=== PATIENT | female | born 1980 | race Caucasian/White ===

== ENCOUNTER 2020-01-01 06:30 | Outpatient (CLI) | payer OTHER, SELFPAY ==
--- NOTE | 2020-01-06 21:48 | SLEEP_ITS ---
Home sleep test. DATE OF STUDY: 01/01/2020 ORDERING PHYSICIAN: April Roth M.D. REASON FOR THE STUDY: Fatigue. HISTORY: This patient is a 39-year-old female, who is 5 feet 4 inches tall, weighing 205 pounds with a body mass index of 35.1. She has complaints of fatigue, feeling tired, and sluggish daily. She has not been able to lose weight even with dieting after her 2nd . She has a mass in her neck that developed after her in 2017 near her thyroid. All testing has been negative. She has been exercising recently. She feels sluggish and tired even after sleeping 8 hours. It is very severe. Her father has sleep apnea and her mother snores. She has 2 children, ages 6 and 3. She occasionally awakens from sleep feeling short of breath if she sleeps on her back. She frequently awakens at night with heartburn or belching. She occasionally snores and only rarely it is loud enough that others complain about it. She constantly has trouble sleeping with the cold. She occasionally gasps for breath at night when she is sleeping on her back. Other people do not complain about her sleep. She occasionally sweats excessively at night. She does not fall asleep during the day, does not fall asleep involuntarily or while driving. She does not have loss of muscle tone with strong emotion. She occasionally has daytime difficulty due to excessive sleepiness. She does not feel paralyzed on waking or falling asleep and does not have vivid dreamlike scenes upon awakening or falling asleep. She is never afraid to go to sleep. She has nightmares when she gets overheated at night. She rarely remembers her dreams. She constantly has racing thoughts. She rarely feels sad or depressed and rarely has anxiety. She occasionally has muscular tension. She does not notice parts of her body jerking. She does not kick at night. She frequently has crawly and achy feelings in her legs and frequently has leg pain at night. She does not have morning jaw pain. She does not grind her teeth during the sleep. She rarely is bothered by pain during the day. She is not awakened by pain at night. She frequently wakes up feeling stiff in the morning with sore achy muscles. She has stomach problems, fatigue, bowel disturbances, headaches, concentration difficulties, and takes antacids regularly. She goes to bed at 10 p.m., falling asleep within minutes, waking 6 times at night, tossing, turning, but does not get out of the bed. She will be awake for a few moments to a few minutes. She will roll-over and fall asleep again. She wakes for the day at 7:30 a.m. She does not take naps. A short nap is not refreshing. She is drowsy in the morning for 3 hours or longer. MEDICAL COMORBIDITIES: Seasonal allergies, heartburn, IBS symptoms with diarrhea and constipation. MEDICATIONS: 1. Zyrtec 1 daily during allergy season. 2. Tums as needed for heartburn symptoms. 3. control implant. HABITS: Never smoked tobacco. Caffeine, 1 to 2 cups of coffee a day. No alcohol or recreational drugs. DESCRIPTION OF THE STUDY: On the [place] Sleepiness Scale, the score is 2. This was conducted as an unattended type 3 portable home sleep test using the 4 channel monitoring with snoring channel, oxygen saturation channel, respiratory effort channel, and heart rate channel. The duration was 8 hours 26 minutes. The apnea-hypopnea index is 1.9. Oxygen desaturation index is 1.4. Lowest saturation 90%. She had 3 apneas. Two apneas were obstructive, 1 apnea was central and there were 13 hypopneas. She had 31 snoring events. She had 13 desaturations and spent no time below 88%. Heart rate ranged from 56 to 95. IMPRESSION: This home sleep test does not show significant evidence of
== END 2020-01-01 06:31 | disposition home or self-care (01) ==
LOC: ANHCSM 06:30
PROVIDERS: PCP Family Medicine Adolescent Medicine; Visit Provider Internal Medicine Endocrinology, Diabetes & Metabolism
DX: R53.83 Other fatigue (principal)
CPT/HCPCS: 95806

== ENCOUNTER → 2020-08-19 10:49 | Outpatient (CLI) | payer OTHER, SELFPAY ==
--- NOTE | ~2020-08-19 | US_ITS ---
EXAMINATION: US thyroid DATE: 08/19/2020 11:13 INDICATION: Nontoxic single thyroid nodule TECHNIQUE: Multiple ultrasound images of the thyroid were obtained. COMPARISON: 05/28/2019 FINDINGS: The right thyroid lobe measures 6.1 x 2.3 x 2.5 cm. The left thyroid lobe measures 5.9 x 1.7 x 1.7 c m. Thyroid isthmus measures 4 mm. Multiple bilateral thyroid nodules. Unchanged 2.3 cm wider than enrique l solid isoechoic nodule with smooth margins and without echogenic foci (TI-RADS 3, mildly suspicious , FNA if >=2.5 cm, annual followup is >=1.5 cm) in the right thyroid lobe. At the superior right thy roid lobe there is a 1.1 very hypoechoic solid nodule with ill-defined margins (TI-RADS 4, moderately suspicious , FNA if >=1.5 cm, annual followup is >=1 cm). Second 1.1 cm predominantly solid hypoecho ic 2 very hypoechoic nodule with lobular margins at the superior right thyroid (TI-RADS 5, highly tomasz picious , FNA if >=1.0 cm, annual followup is >0.5 cm). There is normal echotexture, echogenicity and vascular flow throughout the thyroid gland. No significant interval change in a 1.8 cm predominantly anechoic cystic TI RADS 1 nodule at the inferior right thyroid. 1.0 cm solid isoechoic nodule with h ypoechoic halo with ill-defined margins TI RADS 4 at the inferior left thyroid. There are a few addit ional subcentimeter nodules in the left and right thyroid lobes. There is otherwise normal echogenici ty throughout the surrounding thyroid. IMPRESSION: 1. Multinodular goiter. A 1.1 cm TI RADS 5 nodule at the superior right thyroid which meets criteria for ultrasound-guided biopsy which would be recommended. Reviewed, dictated and finalized at location B. [facility] [employer]
== END ==
PROVIDERS: Visit Provider Internal Medicine Endocrinology, Diabetes & Metabolism
DX: E04.2 Nontoxic multinodular goiter (principal)
CPT/HCPCS: 76536

== ENCOUNTER 2020-10-03 10:16 | Outpatient (CLI) | payer OTHER, SELFPAY ==
--- NOTE | ~2020-10-03 | US_ITS ---
EXAMINATION: US thyroid DATE: 10/03/2020 11:06 INDICATION: Right thyroid nodule TECHNIQUE: Multiple ultrasound images of the thyroid were obtained. COMPARISON: None. FINDINGS: Personal Consultant imaging of the right thyroid lobe was obtained prior to planned biopsy of a previous noted 11 m m TI RADS 5 nodule. On real-time imaging the nodule previously appearing as a lobular hypoechoic nodu le appeared rather to be comprised of independent subcentimeter predominantly cystic TI RADS 1 nodule s. Given the reassessment and downgrading of the lesions the planned biopsy was canceled. IMPRESSION: 1. Downgrading of the previously noted nodule of concern. On real-time imaging lesion as previously i remedios appear to be comprised of a separate smaller TI RADS 1 nodules not meeting criteria for biopsy or follow-up and the planned biopsy was canceled. Reviewed, dictated and finalized at location A. IMPRESSION: 1. Downgrading of the previously noted nodule of concern. On real-time imaging lesion as previously imaged appear to be comprised of a separate smaller TI RAD S 1 nodules not meeting criteria for biopsy or follow-up and the planned biopsy was canceled.
== END 2020-10-03 10:17 | disposition home or self-care (01) ==
PROVIDERS: PCP Family Medicine Adolescent Medicine; Visit Provider Internal Medicine Endocrinology, Diabetes & Metabolism
DX: E04.1 Nontoxic single thyroid nodule (principal)
CPT/HCPCS: 76536

== ENCOUNTER 2022-06-18 09:35 | Emergency (ER) | payer OTHER, SELFPAY ==
[2022-06-18 09:41] VITALS: BP 134/84; PULSE 79; RESP 16; TEMP 36.9; O2SAT 98
--- NOTE | 2022-06-18 10:14 | ED.URI ---
HPI - URI/Sore Throat General Chief Complaint: Upper Respiratory Infection Stated Complaint: cough, chest pain, wheezing Time Seen by Provider: 06/18/22 10:14 Source: patient Mode of arrival: ambulatory Limitations: no limitations History of Present Illness HPI Narrative: 42-year-old female presenting for complaint of cough worsening over the last 2 days. States cough is minimally productive. Also states she felt a mid upper chest tightness and wheezing this morning when she woke. Denies sob, dizziness, fatigue, body aches, n/v/d/f/c. Related Data Home Medications Medication Instructions Recorded Confirmed etonogestrel 68 mg subdermal 1 implant subdermal ONCE 08/11/20 06/18/22 implant (Nexplanon) Allergies Allergy/AdvReac Type Severity Reaction Status Date / Time No Known Allergies Allergy Verified 06/18/22 09:48 Review of Systems Review of Systems: CONSTITUTIONAL: Denies body aches, fever, chills, or sweats. EYES: Denies visual changes, redness, or discharge. ENT: Denies rhinorrhea, congestion, sore throat, or otalgia. CARDIOVASCULAR: Denies chest pain, palpitations, or edema. RESPIRATORY: Reports cough, wheezing. GASTROINTESTINAL: Denies abdominal pain, nausea, vomiting, or diarrhea. GENITOURINARY: Denies dysuria or hematuria. SKIN: Denies rash, itching, or wounds. MUSCULOSKELETAL: Denies back pain, joint pain, or myalgia. NEUROLOGIC: Denies headache, numbness, tingling, or weakness. All systems reviewed & are unremarkable except as noted in HPI and below PMFSH Past Medical History Medical History Migraines Obesity Surgical History Surgical History History of cholecystectomy History of ERCP Family History Family History Other Alcoholism Asthma Diabetes mellitus Heart disease Hypertension Migraines Obesity Psychiatric problem Social History Social History Smoking status: Never smoker Alcohol intake: current Alcohol use details: 1 drink/month Substance use: never Comments At time of signature, I have reviewed and agree with nursing past medical, surgical, social and family history unless otherwise noted. Please see nursing chart for further information. There is no relevant family history pertinent to the presenting complaint Exam Narrative: GENERAL: Well-appearing, in no acute distress. EYES: EOMI. No redness or drainage. Conjunctivae normal. ENT: Mucous membranes pink and moist. No rhinorrhea. TMs normal bilaterally. Throat normal. Uvula midline. NECK: Normal AROM. Supple. CHEST: No respiratory distress. Wheezing to all martinez. HEART: Regular rate and rhythm. No murmur appreciated. ABDOMEN: Soft, nontender, nondistended, normal active bowel sounds. EXTREMITIES: Normal range of motion. No edema. SKIN: Warm, dry, no rash. Capillary refill normal. Normal skin turgor. NEURO: Alert and oriented x3. Gait steady. PSYCH: Normal affect. Course Course Emergency Course: Patient is aware of diagnosis, understands and agrees to treatment plan. Anticipatory guidance given. Patient agrees to follow-up as directed and is aware of reasons to seek care at the emergency department. Portions of this record may have been created with voice recognition software Level of Care: Express Care Visit Vital Signs Vital signs: Vital Signs Temperature 98.4 F 06/18/22 09:41 Pulse Rate 79 06/18/22 09:41 Respiratory Rate 16 06/18/22 09:41 Blood Pressure 134/84 06/18/22 09:41 Pulse Oximetry 98 06/18/22 09:41 Oxygen Delivery Room Air 06/18/22 09:41 Temperature 98.4 F 06/18/22 09:41 Pulse Rate 79 06/18/22 09:41 Respiratory Rate 16 06/18/22 09:41 Blood Pressure 134/84 06/18/22 09:41 Pulse Oximetry 98 06/18/22 09:
== END 2022-06-18 10:25 | disposition home or self-care (01) ==
PROVIDERS: Emergency Provider Nurse Practitioner Family; PCP Family Medicine Adolescent Medicine
DX: J40 Bronchitis, not specified as acute or chronic (principal); E66.9 Obesity, unspecified; Z68.30 Body mass index [BMI] 30.0-30.9, adult
CPT/HCPCS: 99213; G0463

== ENCOUNTER → 2023-01-22 13:48 | Outpatient (CLI) | payer OTHER, SELFPAY ==
--- NOTE | ~2023-01-22 | MM_ITS ---
EXAMINATION: MM screening rhea BI w ella HISTORY: Screening mammogram TECHNIQUE: Craniocaudal and mediolateral oblique 3-D tomosynthesis images were obtained and synthetic 2-D images were generated. CAD analysis was submitted and interpreted. COMPARISON: None, baseline BREAST PARENCHYMAL COMPOSITION: The breasts are heterogeneously dense, which may obscure small masses . FINDINGS: RIGHT BREAST: No suspicious mass, calcification, or architectural distortion are identified to sugges t malignancy. LEFT BREAST: An asymmetry is present in the middle third of the slightly inner breast on the cranioca udal view 6 cm from the nipple. In addition, there is a possible obscured mass near the fibroglandula r margin in the slightly outer breast best appreciated 4 cm from the nipple on the craniocaudal view. IMPRESSION: 1. Left breast findings as above. 2. Additional mammographic views and possible breast ultrasound are recommended to evaluate the left breast findings and establish a baseline given that this is the first mammographic examination. BI-RADS Category 0: Incomplete: Needs additional imaging evaluation. Reviewed, dictated and finalized at location A.
== END ==
PROVIDERS: PCP Obstetrics & Gynecology; Visit Provider Obstetrics & Gynecology
DX: Z12.31 Encounter for screening mammogram for malignant neoplasm of breast (principal); R92.8 Other abnormal and inconclusive findings on diagnostic imaging of breast
CPT/HCPCS: 77063; 77067

== ENCOUNTER → 2023-02-13 09:39 | Outpatient (CLI) | payer OTHER, SELFPAY ==
--- NOTE | ~2023-02-13 | MMUS_ITS ---
EXAMINATION: MM diagnostic rhea LT w ella, US breast LT limited HISTORY: Asymmetry and possible mass of the left breast on screening mammogram TECHNIQUE: Additional 3-D tomosynthesis images of the left breast were performed and synthetic 2-D im ages were generated. CAD analysis was submitted and interpreted. High resolution limited left breast ultrasound was performed. COMPARISON: 01/22/2023 FINDINGS: MAMMOGRAPHIC FINDINGS: No persistent asymmetry is seen with spot compression of the inner breast. There is a 10 mm round, ob scured, equal density mass in the middle third of the outer breast at the 3:00 location, 4 cm from th e nipple. ULTRASOUND: There are multiple cysts in the upper outer quadrant of the breast. One measuring 10 mm at the 12:00 location, 2 cm from the nipple is consistent with the mammographic finding in question. There is a 1. 3 x 0.4 cm probable cluster of microcysts at the 6:00 location, 2 cm from the nipple. IMPRESSION: 1. Probably benign sonographically mass at the 6:00 location, 2 cm from the nipple. 2. Recommend 6 month follow-up targeted left breast ultrasound. BI-RADS category 3, probably benign findings. Reviewed, dictated and finalized at location L. IMPRESSION: 1. Probably benign sonographically mass at the 6:00 location, 2 cm from the nip ple. 2. Recommend 6 month follow-up targeted left breast ultrasound. BI-RADS category 3, probably benign findings.
== END ==
PROVIDERS: PCP Obstetrics & Gynecology; Visit Provider Obstetrics & Gynecology
DX: R92.8 Other abnormal and inconclusive findings on diagnostic imaging of breast (principal)
CPT/HCPCS: 76642; 77061; 77065; G0279

== ENCOUNTER 2023-10-02 09:05 | Outpatient (CLI) | payer OTHER, SELFPAY ==
--- NOTE | ~2023-10-02 | US_ITS ---
US breast LT limited INDICATION: Follow-up left breast masses TECHNIQUE: Dedicated Limited left breast ultrasound COMPARISON: 02/13/2023 FINDINGS: At 6:00, 2 cm from the nipple, there is a cluster of cysts measuring up to 7 mm conglomerat e. No suspicious masses to suggest malignancy. IMPRESSION: 1: No sonographic evidence for malignancy in the left breast. Benign findings. Routine yearly screening mammogram and regular clinical breast examination are recommended. BI-RADS CATEGORY 2 - BENIGN FINDINGS Reviewed, dictated and finalized at location B.
== END 2023-10-02 09:06 ==
LOC: MICIMG 09:06
PROVIDERS: PCP Obstetrics & Gynecology; Visit Provider Obstetrics & Gynecology
DX: R92.8 Other abnormal and inconclusive findings on diagnostic imaging of breast (principal)
CPT/HCPCS: 76642

== ENCOUNTER 2024-07-10 09:34 | Emergency (ER) | payer OTHER, SELFPAY ==
[2024-07-10 09:43] VITALS: BP 141/90; PULSE 92; RESP 16; TEMP 37; O2SAT 99
--- NOTE | 2024-07-10 10:04 | ED.URI ---
HPI - URI/Sore Throat General Chief Complaint: Upper Respiratory Infection Stated Complaint: Ear Pain/Sore Throat Time Seen by Provider: 07/10/24 09:59 Source: patient and RN notes reviewed Mode of arrival: ambulatory Limitations: no limitations History of Present Illness HPI Narrative: Patient presents today complaining of a 2 day history of left-sided sore throat and ear pain. Four days ago she finished a 10 day course of penicillin for strep throat prescribed by a different Urgent Care. States that 3 years ago she had strep and needed to courses of antibiotics to get rid of it. Denies shortness of breath or difficulty swallowing. Pain in the throat does increase with swallowing. Currently rates her pain 5/10. She has taken DayQuil and ibuprofen for her discomfort with minimal relief. Related Data Home Medications ?Medication ?Instructions ?Recorded ?Confirmed ?Last Taken ?Type etonogestrel 68 mg subdermal 1 implant subdermal ONCE 08/11/20 06/18/22 Unknown History implant (Nexplanon) Allergies Allergy/AdvReac Type Severity Reaction Status Date / Time No Known Allergies Allergy Verified 07/10/24 09:35 Review of Systems Review of Systems: CONSTITUTIONAL: Denies body aches, fever, chills, or sweats. EYES: Denies visual changes, redness, or discharge. ENT: Denies rhinorrhea, congestion, + sore throat, left ear pain CARDIOVASCULAR: Denies chest pain, palpitations, or edema. RESPIRATORY: Denies cough or dyspnea. GASTROINTESTINAL: Denies abdominal pain, nausea, vomiting, or diarrhea. GENITOURINARY: Denies dysuria or hematuria. SKIN: Denies rash, itching, or wounds. MUSCULOSKELETAL: Denies back pain, joint pain, or myalgia. NEUROLOGIC: Denies headache, numbness, tingling, or weakness. PSYCH: Denies depression or anxiety. FOR[facility]LY [facility], [facility] Past Medical History Medical History (Updated 07/10/24 @ 10:07 by Ana Cowan, DENNIS, THEODORE) Obesity Migraines Surgical History Surgical History History of cholecystectomy History of ERCP Family History Family History Other Alcoholism Asthma Diabetes mellitus Heart disease Hypertension Migraines Obesity Psychiatric problem Social History Social History Smoking status: Never smoker Alcohol intake: current Alcohol use details: 1 drink/month Substance use: never Comments At time of signature, I have reviewed and agree with nursing past medical, surgical, social and family history unless otherwise noted. Please see nursing chart for further information. There is no relevant family history pertinent to the presenting complaint Exam Narrative: GENERAL: Well-appearing, well-nourished, and in no acute distress. HEAD: Normocephalic, atraumatic. EYES: EOMI. No redness or drainage. Conjunctivae normal. ENT: Mucous membranes pink and moist. Nares clear. No rhinorrhea. TMs normal bilaterally. Throat erythematous and moderately edematous. Tonsils 3+ without exudate. Uvula midline. NECK: Normal AROM. Supple. No lymphadenopathy. CHEST: No respiratory distress. Clear to auscultation. HEART: Regular rate and rhythm. No murmur appreciated. EXTREMITIES: Normal range of motion. No edema. SKIN: Warm, dry, no rash. Capillary refill normal. Normal skin turgor. NEURO: No focal deficits. Alert and oriented x3. Gait steady. PSYCH: Normal affect. No signs of depression or anxiety. Course Course Level of Care: Express Care Visit Vital Signs Vital signs: Vital Signs Temperature 98.6 F 07/10/24 09:43 Pulse Rate 92 07/10/24 09:43 Respiratory Rate 16 07/10/24 09:43 Blood Pressure 141/90 H 07/10/24 09:43 Pulse Oximetry 99 07/10/24 09:43 Temperature 98.6 F 07/10/24 09:43 Pulse Rate 92 07/10/24 09:43 Respiratory Rate 16 07/10/24 09:43 Blood Pressure 141/90 H 07/10/24 09:43 Pulse Oximetry 99 07/10/24 09:43 Reviewed MDM - URI/Sore Throat MDM Narrative Medical decision making narrative: Patient will be started on a course of Augmentin for presumed recurrent strep throat. Anticipatory guidance given. Differential Diagnosis Differential diagnosis: Likely upper respiratory infection, otitis media, viral infection, pharyngitis and other (Strep throat) Critical Care Time Critical Care Time Critical Care Time: No Discharge Plan Discharge Clinical Impression: Strep throat Patient Disposition: Home, Self-Care Condition: Stable Instructions: Antibiotic Form, Strep Throat (DC) Additional Instructions: Please take the Augmentin as prescribed until gone. Continue ibuprofen if needed for pain/inflammation. Follow-up with your PCP in 3 days if symptoms are not improving. Go to the ER immediately if you develop shortness of breath or difficulty swallowing. Your blood pressure was elevated above 120/80 today at Urgent Care. This puts you above the threshold for follow up. Please schedule a followup visit with your personal physician as soon as possible, for further evaluation and treatment. Even blood pressure exceeding 120/80 may indicate pre-hypertension. Patient Language: Slovak Prescriptions: New amoxicillin-pot clavulanate 875-125 mg tablet 1 tablet PO Q12H 10 Days Qty: 20 0RF No Action benzonatate 200 mg capsule 200 mg PO TID PRN (Reason: cough) Qty: 20 0RF methylprednisolone [Medrol (Nishant)] 4 mg tablets,dose pack See Rx Instructions .ROUTE .COMPLEX Qty: 21 0RF Rx Instructions: orally per package directions albuterol sulfate 90 mcg/actuation HFA aerosol inhaler 2 inh inhalation QID PRN (Reason: shortness of breath or wheezing) Qty: 8.5 0RF Nexplanon 68 mg implant 1 implant subdermal ONCE Rx Instructions: as a single dose Follow-up/Referrals: Scott Crockett MD [Primary Care Provider] - Time of Disposition: 10:08
== END 2024-07-10 10:09 | disposition home or self-care (01) ==
PROVIDERS: Emergency Provider Nurse Practitioner; PCP Family Medicine Adolescent Medicine
DX: J02.0 Streptococcal pharyngitis (principal); E66.9 Obesity, unspecified; Z68.30 Body mass index [BMI] 30.0-30.9, adult
CPT/HCPCS: 99213; G0463

== ENCOUNTER 2025-05-11 13:07 | Outpatient (CLI) | payer OTHER, SELFPAY ==
--- NOTE | ~2025-05-11 | MM_ITS ---
EXAMINATION: MM screening [facility] BI w ella HISTORY: Screening TECHNIQUE: Craniocaudal and mediolateral oblique 3-D tomosynthesis images were obtained and synthetic 2-D images were generated. CAD analysis was submitted and interpreted. COMPARISON: Comparison to multiple prior studies sequentially, with oldest reviewed study dated 01/22/2023. BREAST PARENCHYMAL COMPOSITION: Dense: The breasts are heterogeneously dense, which may obscure small masses FINDINGS: There is obscured masses in the upper outer quadrant of the right breast, middle third and upper outer quadrant of the left breast, middle third. There are no suspicious calcifications or architectural distortion. IMPRESSION: 1. Obscured bilateral breast masses. 2. Additional mammographic views and possible breast ultrasound are recommended. BI-RADS Category 0: Incomplete: Needs additional imaging evaluation. Reviewed, dictated and finalized at location O. CARE COMPANION IMPRESSION: 1. Obscured bilateral breast masses. 2. Additional mammographic views and possible breast ultrasound are recommended . BI-RADS Category 0: Incomplete: Needs additional imaging evaluation.
== END 2025-05-11 13:08 | disposition home or self-care (01) ==
PROVIDERS: PCP Obstetrics & Gynecology; Visit Provider Obstetrics & Gynecology
DX: Z12.31 Encounter for screening mammogram for malignant neoplasm of breast (principal)
CPT/HCPCS: 77063; 77067